=== PATIENT | male | born 1985 | race Caucasian/White ===

== ENCOUNTER 2022-11-03 14:05 | Emergency (ER) | payer BC ==
[~2022-11-03] VITALS: Ht 190.5 cm; Wt 113.4 kg
[2022-11-03 14:17] VITALS: BP_SYST 231; PULSE 105; RESP 18; TEMP 98.3; O2SAT 99
[2022-11-03] MEDS ORDERED: cloNIDine HCL 0.1 MG TABLET PO ONE (15:00)
[2022-11-03] MEDS ORDERED: cloNIDine HCL 0.1 MG TABLET ONE (15:05)
[2022-11-03] MEDS ORDERED: CLON0.2T PO (15:41)
[2022-11-03] MEDS ORDERED: IBUP-1971 PO (15:41)
[2022-11-03] MEDS ORDERED: TRAM50TA2 PO (15:41)
[2022-11-03 16:47] VITALS: BP_SYST 164; PULSE 98; RESP 18; TEMP 98.1; O2SAT 99
== END 2022-11-03 16:30 | disposition home or self-care (01) ==
LOC: SED 14:05
DX: S83.412A Sprain of medial collateral ligament of left knee, initial encounter (principal); I10 Essential (primary) hypertension; Z79.899 Other long term (current) drug therapy; W16.522A Jumping or diving into swimming pool striking bottom causing other injury, initial encounter; Y93.89 Activity, other specified; Y92.89 Other specified places as the place of occurrence of the external cause; Y99.8 Other external cause status
CPT/HCPCS: 73564; 99283